=== PATIENT | female | born 1960 | race African-American/Black ===

== ENCOUNTER → 2020-01-03 | Day surgery (SDC) | payer BC ==
--- OUTSIDE RECORDS SUMMARY | 2020-01-03 10:34 | XMS ---
:1960 Author Organization [facility] Support Name Relationship Address Phone ABDIRAHMAN ISAIAS [employer]UC[employer] Unavailable [address] [place] [address] YOBE Unavailable [address] [place] [address] CELINA SHAW SISTER [address] [place] [address] NIKOLAS BENEDICT SON [address] [place] [address] Re-disclosure Warning The records that you are about to access may contain information from federally- assisted alcohol or drug abuse programs. If such information is present, then the following federally mandated warning applies: This information has been disclosed to you from records protected by federal confidentiality rules (42 CFR part 2). The federal rules prohibit you from making any further disclosure of this information unless further disclosure is expressly permitted by the written consent of the person to whom it pertains or as otherwise permitted by 42 CFR part 2. A general authorization for the release of medical or other information is NOT sufficient for this purpose. The Federal rules restrict any use of the information to criminally investigate or prosecute any alcohol or drug abuse patient.The records that you are about to access may contain highly sensitive health information, the redisclosure of which is protected by Article 27-F of the [facility] Public Health law. If you continue you may haveaccess to information: Regarding HIV / AIDS; Provided by facilities licensed or operated by the [facility] Office of Mental Health; or Provided by the [facility] Office for People With Developmental Disabilities. If such information is present, then the following [facility] mandated warning applies: This information has been disclosed to you from confidential records which are protected by state law. State law prohibits you from making any further disclosure of this information without the specific written consent of the person to whom it pertains, or as otherwise permitted by law. Any unauthorized further disclosure in violation of state law may result in a fine or retirement sentence or both. A general authorization for the release of medical or other information is NOT sufficient authorization for further disclosure. Insurance Providers Payer name Policy type Policy ID Covered Covered constitution party's Policy P krissy / Coverage constitution party ID relationship to [employer] Inf ormation type [employer] PPO [id number] [facility] PPO
--- NOTE | 2020-01-04 10:52 | PATH ---
Surgical Pathology Report Patient Name: STEFANIA BENEDICT [facility]. Rec. #: [id number] /Age/Gender: 1960 (Age: 59) / F Account: [id number] Location: [facility] Taken: 01/03/2020 Received: 01/03/2020 Reported: 01/04/2020 Physicians: Charles Disla Specimen(s) Received A: RIGHT BREAST SPECIMEN WITH CALCIFICATIONS B: RIGHT BREAST SPECIMEN WITHOUT CALCIFICATIONS Clinical History Nonpalpable lesion Mammographic findings: Microcalcification, suspicious Final Diagnosis A. BREAST SPECIMEN, RIGHT, WITH CALCIFICATIONS, STEREOTACTIC CORE BIOPSY: FIBROADENOMA WITH ASSOCIATED STROMAL MICROCALCIFICATIONS. B. 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 Electronically Signed Jolene Payne M.D. Gross Description A. Received in formalin labeled "right breast with calcifications," is a 2.2 x 2.1 x 0.3 cm aggregate of multiple durbin-yellow, irregular to cylindrical portions of fibroadipose tissue. The formalin is filtered and the specimen is entirely submitted in one cassette. B. Received in formalin labeled "right breast without calcifications," is a 2.1 x 2.0 x 0.3 cm aggregate of multiple durbin-yellow, irregular to cylindrical portions of fibroadipose tissue. The formalin is filtered and the specimen is entirely submitted in one cassette. Time to formalin fixation: 5 minutes Total formalin fixation time: Approximately 7 hours. DL/01/03/2020 saudi/01/03/2020
== END | disposition home or self-care (01) ==
LOC: FMAMMOTONE 10:02
PROVIDERS: ATTEND Obstetrics & Gynecology
PROC: 0HBT3ZX Excision of Right Breast, Percutaneous Approach, Diagnostic (ICD-10-PCS; principal; 2020-01-03)
DX: D64.1 Secondary sideroblastic anemia due to disease (principal); N60.31 Fibrosclerosis of right breast; N64.89 Other specified disorders of breast; R92.1 Mammographic calcification found on diagnostic imaging of breast
CPT/HCPCS: 19081; 76098-TC-FY; 88305-TC